=== PATIENT | female | born 1970 | race Caucasian/White ===

== ENCOUNTER 2018-08-20 12:19 | Inpatient (IN) | payer MEDICAID | END 2018-08-25 11:08 | disposition home or self-care (01) | DRG 745 | LOC: C.ER 12:19 → C.7D 14:25 | PROC: GZHZZZZ Group Psychotherapy (ICD-10-PCS; principal; 2018-08-20) | PROC: GZ56ZZZ Individual Psychotherapy, Supportive (ICD-10-PCS; 2018-08-20) | DX: F11.10 Opioid abuse, uncomplicated (principal); F17.210 Nicotine dependence, cigarettes, uncomplicated; F32.9 Major depressive disorder, single episode, unspecified; F10.230 Alcohol dependence with withdrawal, uncomplicated; F10.220 Alcohol dependence with intoxication, uncomplicated; Y90.6 Blood alcohol level of 120-199 mg/100 ml; G47.00 Insomnia, unspecified ==